=== PATIENT | male | born 1990 | race Caucasian/White ===

== ENCOUNTER 2018-01-04 19:18 | Emergency (ER) | END 2018-01-05 01:56 | disposition home or self-care (01) ==

== ENCOUNTER 2018-01-07 15:12 | Emergency (ER) | END 2018-01-07 17:35 | disposition home or self-care (01) ==

== ENCOUNTER 2018-01-16 11:42 | Emergency (ER) | END 2018-01-16 12:24 | disposition home or self-care (01) ==